=== PATIENT | female | born 1960 | race Caucasian/White ===

== ENCOUNTER → 2021-02-25 | Outpatient (CLI) | payer MEDICARE, OTHER ==
[2021-02-25 17:29] LABS: HEMOGLOBIN 14.4 gm/dl (12.3-15.3); RED BLOOD COUNT 4.71 M/UL (4.00-5.10); WHITE BLOOD COUNT 9.5 K/UL (4.5-11.0)
[2021-02-25 17:49] LABS: BUN/CREATININE RATIO 20 (0-10)
== END ==
LOC: LAB 17:06
PROVIDERS: Internal Medicine
DX: M31.6 Other giant cell arteritis (principal); E53.8 Deficiency of other specified B group vitamins; R79.82 Elevated C-reactive protein (CRP); R70.0 Elevated erythrocyte sedimentation rate; E55.9 Vitamin D deficiency, unspecified; Z79.899 Other long term (current) drug therapy
CPT/HCPCS: 36415; 71046; 80053; 82607; 82746; 85025; 85652; 86140

== ENCOUNTER → 2021-07-29 | Outpatient (CLI) | payer MEDICARE | LOC: EXRD 07-10 13:00 | DX: M81.0 Age-related osteoporosis without current pathological fracture (principal) | CPT/HCPCS: 77080 ==